=== PATIENT | male | born 1995 | race Hispanic/Latino ===

== ENCOUNTER 2021-11-14 10:04 | Emergency (ER) | payer SELFPAY ==
[2021-11-14] MEDS ORDERED: LIDOCAINE 1% W/EPI 1:100,000 MDV 20 ML VIAL ONE (10:35)
[2021-11-14] MEDS ORDERED: TETANUS & DIPHTHERIA TOX,ADULT 0.5 ML VIAL ONE (10:43)
--- NOTE | 2021-11-14 11:12 | RAD REPORT ---
EXAM DESCRIPTION: RAD - Knee Right 3 View - 11/14/2021 11:01 am CLINICAL HISTORY: Right knee pain status post injury FINDINGS: No fracture or dislocation is seen. Anterior soft tissue laceration.
--- NOTE | 2021-11-14 11:49 | EDPHYS ---
Physician Documentation [facility] Name: Homer He Age: 26 yrs Sex: Male : 1995 Arrival Date: 11/14/2021 Time: 10:07 Bed 11 Private MD: ED Physician Quang Redd HPI: 11/14 11:42 This 26 yrs old Male presents to ER via Ambulatory with complaints of Knee jj Injury. 11:42 The patient presents with an injury, a laceration, 5 cm(s). The complaints affect the jj right knee. Context: The problem was sustained at home. Onset: The symptoms/episode began/occurred just prior to arrival. Modifying factors: The symptoms are alleviated by nothing. the symptoms are aggravated by movement, bending knee. Associated signs and symptoms: The patient has no apparent associated signs or symptoms. Treatment prior to arrival includes: no previous treatment. Severity of symptoms: At their worst the symptoms were mild, in the emergency department the symptoms are unchanged. The patient has not experienced similar symptoms in the past. Historical: - Allergies: 10:14 No Known Allergies; ll1 - PMHx: 10:14 None; ll1 - PSHx: 10:14 None; ll1 - Immunization history:: Client reports having NOT received the Covid vaccine. Last tetanus immunization: unknown. - Social history:: Smoking status: Patient denies any tobacco usage or history of. - Family history:: not pertinent. ROS: 11:42 Constitutional: Negative for fever, chills, and weight loss, Eyes: Negative for injury, jj pain, redness, and discharge, ENT: Negative for injury, pain, and discharge, Neck: Negative for injury, pain, and swelling, Cardiovascular: Negative for chest pain, palpitations, and edema, Respiratory: Negative for shortness of breath, cough, wheezing, and pleuritic chest pain, Abdomen/GI: Negative for abdominal pain, nausea, vomiting, diarrhea, and constipation, Back: Negative for injury and pain, : Negative for injury, bleeding, discharge, and swelling, Skin: Negative for injury, rash, and discoloration, Neuro: Negative for headache, weakness, numbness, tingling, and seizure, Psych: Negative for depression, anxiety, suicide ideation, homicidal ideation, and hallucinations, Allergy/Immunology: Negative for hives, rash, and allergies, Endocrine: Negative for neck swelling, polydipsia, polyuria, polyphagia, and marked weight changes, Hematologic/Lymphatic: Negative for swollen nodes, abnormal bleeding, and unusual bruising. 11:42 MS/extremity: Positive for laceration, pain, of the right knee. Exam: 11:42 Constitutional: This is a well developed, well nourished patient who is awake, alert, jj and in no acute distress. Head/Face: Normocephalic, atraumatic. Eyes: Pupils equal round and reactive to light, extra-ocular motions intact. Lids and lashes normal. Conjunctiva and sclera are non-icteric and not injected. Cornea within normal limits. Periorbital areas with no swelling, redness, or edema. ENT: Nares patent. No nasal discharge, no septal abnormalities noted. Tympanic membranes are normal and external auditory canals are clear. Oropharynx with no redness, swelling, or masses, exudates, or evidence of obstruction, uvula midline. Mucous membranes moist. Neck: Trachea midline, no thyromegaly or masses palpated, and no cervical lymphadenopathy. Supple, full range of motion without nuchal rigidity, or vertebral point tenderness. No Meningismus. Chest/axilla: Normal chest wall appearance and motion. Nontender with no deformity. No lesions are appreciated. Cardiovascular: Regular rate and rhythm with a normal S1 and S2. No gallops, murmurs, or rubs. Normal PMI, no JVD. No pulse deficits. Respiratory: Lungs have equal breath sounds bilaterally, clear to auscultation and percussion. No rales, rhonchi or wheezes noted. No increased work of breathing, no retractions or nasal flaring. Abdomen/GI: Soft, non-tender, with normal bowel sounds. No distension or tympany. No guarding or rebound. No evidence of tenderness throughout. Back: No spinal tenderness. No costovertebral tenderness. Full range of motion. Male : Normal genitalia with no discharge or lesions. Skin: Warm, dry with normal turgor. Normal color with no rashes, no lesions, and no evidence of cellulitis. Neuro: Awake and alert, GCS 15, oriented to person, place, time, and situation. Cranial nerves II-XII grossly intact. Motor strength 5/5 in all extremities. Sensory grossly intact. Cerebellar exam normal. Normal gait. Psych: Awake, alert, with orientation to person, place and time. Behavior, mood, and affect are within normal limits. 11:42 Musculoskeletal/extremity: ROM: intact in all extremities, full active range of motion, full passive range of motion, Circulation is intact in all extremities. Sensation intact. Compartment Syndrome exam of affected extremity: is normal. no numbness, no tingling, no sensation deficit, no palor, no weak pulses, DVT Exam: No signs of deep vein thrombosis. no swelling, negative Homans' sign noted on exam, no appreciated bluish discoloration, no erythema, no increased warmth, pain, tenderness. Vital Signs: 10:13 BP 132 / 73; Pulse 86; Resp 16; Temp 99.0; Pulse Ox 97% ; Weight 81.65 kg; Height 5 ft. ll1 10 in. (177.80 cm); Pain 7/10; 10:30 BP 122 / 75; Pulse 74; Resp 12 S; Pulse Ox 95% on R/A; Pain 6/10; jg9 11:35 BP 124 / 82; Pulse 67; Resp 13 S; Pulse Ox 97% on R/A; Pain 0/10; jg9 10:13 Body Mass Index 25.83 (81.65 kg, 177.80 cm) ll1 Laceration: 11:42 Wound Repair of 5cm ( 2.0in ) subcutaneous laceration to right knee. Linear shaped.. jj Distal neuro/vascular/tendon intact. Anesthesia: Local anesthetic administered with 8 mls of 1% lidocaine w/ Epi. Wound prep: Moderate cleansing with betadine. Skin closed with 6 5-0 Prolene using interrupted sutures and sterile technique. Dressed with Neosporin. Patient tolerated well. MDM: 10:09 Patient medically screened. jj 11:42 Differential diagnosis: contusion, abrasion. Data reviewed: vital signs, nurses notes, [facility] radiologic studies, plain films. Data interpreted: cigar packer: rate is 67 beats/min, rhythm is regular, Pulse oximetry: on room air is 97 %. Test interpretation: by ED physician or midlevel provider: plain radiologic studies. Counseling: I had a detailed discussion with the patient and/or guardian regarding: the historical points, exam findings, and any diagnostic results supporting the discharge/admit diagnosis, lab results, radiology results, the need for outpatient follow up, for definitive care, a family practitioner. 11/14 10:27 Order name: Knee Right 3 View XRAY ll1 11/14 10:32 Order name: Wound Care; Complete Time: 11:33 [facility] 11/14 10:32 Order name: Sutures, Prolene; Complete Time: 10:40 [facility] 11/14 11:41 Order name: Wound dressing; Complete Time: 11:42 jj Administered Medications: 10:39 Drug: Tetanus-Diphtheria Toxoid Adult 0.5 ml {Sports Therapist: [employer]. Exp: jg9 08/22/2023. Lot #: [id number]. } Route: IM; Site: right deltoid; 10:47 Follow up: Response: No adverse reaction jg9 11:24 Drug: Lidocaine-Epinephrine -1%: (1:100,000) 20 ml {Note: r knee laceration.} Volume: jg9 20 ml; Route: Infiltration; 11:33 Follow up: Response: No adverse reaction; Pain is decreased j9 11:42 Drug: Neosporin (fryrhqjz-ijikwcxaxx-nujhfbrvs) Ointment 1 application {Note: right jg9 knee.} Route: Topical; Site: wound; 11:44 Follow up: Response: No adverse reaction jg9 Disposition Summary: 11/14/21 11:48 Discharge Ordered Location: Home jj Problem: new jj Symptoms: have improved jj Condition: Stable jj Diagnosis - Laceration without foreign body, right lower leg - knee jj Followup: jj - With: Private Physician - When: 7 - 10 days - Reason: Recheck today's complaints, Continuance of care, Re-evaluation by your physician Discharge Instructions: - Discharge Summary Sheet jj - Laceration Care, Adult jj - Laceration Care, Adult, [id number] jj Forms: - Medication Reconciliation Form jj - Thank You Letter jj - Antibiotic Education jj - Prescription Opioid Use jj Prescriptions: - Cephalexin 500 mg Oral Capsule - take 1 capsule by ORAL route every 8 hours for 7 days; 21 capsule; Refills: 0, jj Product Selection Permitted - Ibuprofen 600 mg Oral Tablet - take 1 tablet by ORAL route every 6 hours As needed take with food; 30 tablet; jj Refills: 0, Product Selection Permitted Signatures: Dispatcher [employer] Quang Fermin MD MD cha Lewis, Lynsay, RN RN ll1 Mandie Elam RN RN jg9
--- NOTE | 2021-11-14 11:49 | ER ---
Nurse's Notes 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 Bleeding ll1 controlled. Coronavirus screen: Vaccine status: Patient reports being unvaccinated. Client denies travel out of the [place] in the last 14 days. At this time, the client does not indicate any symptoms associated with coronavirus-19. Ebola Screen: Patient denies travel to an Ebola-affected area in the 21 days before illness onset. Initial Sepsis Screen: Does the patient meet any 2 criteria? No. Patient's initial sepsis screen is negative. Does the patient have a suspected source of infection? Yes: Skin breakdown/wound. Risk Assessment: Do you want to hurt yourself or someone else? Patient reports no desire to harm self or others. Onset of symptoms was November 14, 2021. 10:13 Method Of Arrival: Ambulatory ll1 10:13 Acuity: FOX 4 ll1 Triage Assessment: 10:14 General: Appears in no apparent distress. Behavior is calm, cooperative, appropriate ll1 for age. Pain: Complains of pain in R knee. Derm: Reports laceration R knee. Musculoskeletal: Circulation, motion, and sensation intact. Capillary refill < 3 seconds. Injury Description: Laceration. Historical: - Allergies: 10:14 No Known Allergies; ll1 - PMHx: 10:14 None; ll1 - PSHx: 10:14 None; ll1 - Immunization history:: Client reports having NOT received the Covid vaccine. Last tetanus immunization: unknown. - Social history:: Smoking status: Patient denies any tobacco usage or history of. - Family history:: not pertinent. Screenin:18 Abuse screen: Denies threats or abuse. Denies injuries from another. Nutritional jg9 screening: No deficits noted. Tuberculosis screening: No symptoms or risk factors identified. Fall Risk None identified. Assessment: 10:13 Reassessment: No changes from previously documented assessment. Patient and/or family jg9 updated on plan of care and expected duration. Pain level reassessed. Patient is alert, oriented x 3, equal unlabored respirations, skin warm/dry/pink. Pain: Complains of pain in right leg Pain currently is 6 out of 10 on a pain scale. Musculoskeletal: laceration to left right knee. Injury Description: Laceration sustained to right leg-knee is clean, 0.5 to 2.5 cm long, was sustained a small amount of bleeding noted at this time. 11:25 Reassessment: Patient and/or family updated on plan of care and expected duration. Pain jg9 level reassessed. Patient is alert, oriented x 3, equal unlabored respirations, skin warm/dry/pink. ED physician at bedside suturing laceration to right knee. Vital Signs: 10:13 BP 132 / 73; Pulse 86; Resp 16; Temp 99.0; Pulse Ox 97% ; Weight 81.65 kg; Height 5 ft. ll1 10 in. (177.80 cm); Pain 7/10; 10:30 BP 122 / 75; Pulse 74; Resp 12 S; Pulse Ox 95% on R/A; Pain 6/10; jg9 11:35 BP 124 / 82; Pulse 67; Resp 13 S; Pulse Ox 97% on R/A; Pain 0/10; jg9 10:13 Body Mass Index 25.83 (81.65 kg, 177.80 cm) ll1 ED Course: 10:07 Patient arrived in ED. rg4 10:09 Quang Redd MD is Attending Physician. [facility] 10:13 Mandie Elam, EMILIE is Primary Nurse. jg9 10:13 Arm band placed on Patient placed in an exam room, on a stretcher. ll1 10:14 Triage completed. ll1 10:19 Patient has correct armband on for positive identification. Bed in low position. Call jg9 light in reach. Side rails up X 1. 10:19 Wound care: to laceration located on right leg-knee was cleaned with soap and water, jg9 Patient tolerated well. 11:03 Knee Right 3 View XRAY In Process Unspecified. EDMS 11:25 ED physician to see patient. jg9 11:27 Assist provider with laceration repair on right leg-r knee that was between 2.6 to 7.5 jg9 cm using sutures. Set up tray. Performed by Quang Redd MD Dressed with 4X4s, Lily, Patient tolerated well. Administered Medications: 10:39 Drug: Tetanus-Diphtheria Toxoid Adult 0.5 ml {Clinical Data Analyst: [employer]. Exp: jg9 08/22/2023. Lot #: [id number]. } Route: IM; Site: right deltoid; 10:47 Follow up: Response: No adverse reaction jg9 11:24 Drug: Lidocaine-Epinephrine -1%: (1:100,000) 20 ml {Note: r knee laceration.} Volume: jg9 20 ml; Route: Infiltration; 11:33 Follow up: Response: No adverse reaction; Pain is decreased jg9 11:42 Drug: Neosporin (ttkyxvbh-vuhbwlveht-rkhgsttck) Ointment 1 application {Note: right jg9 knee.} Route: Topical; Site: wound; 11:44 Follow up: Response: No adverse reaction jg9 Medication: 10:18 VIS not applicable for this client. jg9 Outcome: 11:48 Discharge ordered by MD. gardner 11:52 Patient left the ED. jg9 Signatures: Dispatcher [employer] EDCA Quang Redd MD MD cha Garcia, Rubi rg4 Jayy Marie RN RN ll1 Mandie Elam RN RN jg9
[2021-11-14] MEDS ORDERED: NEOMYCIN/BAC/POLY OPTH 3.5GM ONE (11:50)
[2021-11-14 12:00] VITALS: TEMP 99
[2021-11-14 12:04] VITALS: BP 124/82; O2SAT 97
== END 2021-11-14 11:52 | disposition home or self-care (01) ==
LOC: ER 10:04
PROC: 0JQN0ZZ Repair Right Lower Leg Subcutaneous Tissue and Fascia, Open Approach (ICD-10-PCS; principal; 2021-11-14)
DX: S81.011A Laceration without foreign body, right knee, initial encounter (principal); Z23 Encounter for immunization
CPT/HCPCS: 90471; 90714; 99284

== ENCOUNTER 2024-03-24 14:46 | Emergency (ER) | payer SELFPAY ==
[2024-03-24] MEDS ORDERED: LIDOCAINE 1% MPF 5 ML VIAL ONE (16:13)
--- NOTE | 2024-03-24 16:29 | EDPHYS ---
Physician Documentation [facility] Name: Homer Mcgrath Age: 28 yrs Sex: Male : 1995 Arrival Date: 03/24/2024 Time: 14:46 Bed 8 Private MD: ED Physician Ceasar Mosquera HPI: 03/24 17:02 This 28 yrs old Male presents to ER via Ambulatory with complaints of kb Laceration To Leg. 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 Denies any other injuries. . Historical: - Allergies: 14:52 No Known Allergies; aa5 - PMHx: 14:52 None; aa5 - Immunization history:: Last tetanus immunization: < 5 years ago. - Infectious Disease History:: Denies. - Social history:: Smoking status: Patient denies any tobacco usage or history of. ROS: 17:00 Constitutional: As per HPI kb Exam: 17:00 Constitutional: This is a well developed, well nourished patient who is awake, alert, kb and in no acute distress. Head/Face: Normocephalic, atraumatic. ENT: Moist Mucous membranes Cardiovascular: Regular rate Respiratory: Respirations even and unlabored. No increased work of breathing. Talking in full sentences Abdomen/GI: Soft, non-tender. No distention MS/ Extremity: Pulses equal, no cyanosis. Neurovascular intact. Full, normal range of motion. Neuro: Awake and alert, GCS 15, oriented to person, place, time, and situation. Moves all extremities. Normal gait. 17:00 Skin: injury, abrasion(s), small abrasion noted, of the left peoples, laceration(s), the wound is approximately 3 cm(s), of the lateral aspect of left calf, that can be described as contaminated, no foreign body, linear, without bleeding, Vital Signs: 14:52 BP 141 / 95; Pulse 96; Resp 18 S; Temp 98.2(TE); Pulse Ox 98% on R/A; Weight 86.18 kg aa5 (R); Height 6 ft. 0 in. (R); 16:38 BP 134 / 76; Pulse 88; Resp 16; Pulse Ox 100% on R/A; mb9 14:52 Body Mass Index 25.77 (86.18 kg, 182.88 cm) aa5 Laceration: 17:01 Wound Repair of 3cm ( 1.2in ) subcutaneous laceration to lateral aspect of left calf. kb Linear shaped.. Distal neuro/vascular/tendon intact. Anesthesia: Local anesthetic administered with 3 mls of 1% lidocaine. Wound prep: Extensive cleansing with hibiclenz by nurse, Wound irrigation with saline by me. Skin closed with 3 4-0 Prolene using simple sutures and sterile technique. Patient tolerated well. MDM: 14:51 Patient medically screened. kb 17:02 Differential diagnosis: superficial laceration, tendon injury, vascular injury. Data kb reviewed: vital signs, nurses notes. Test considered but Not performed: X-ray: xray considered but laceration is superficial. Counseling: I had a detailed discussion with the patient and/or guardian regarding the historical points, exam findings, and any diagnostic results supporting the discharge/admit diagnosis, the need for outpatient follow up, a family practitioner, to return to the emergency department if symptoms worsen or persist or if there are any questions or concerns that arise at home. 03/24 14:55 Order name: Wound Care: please clean wound; Complete Time: 15:00 kb 03/24 16:01 Order name: Dressing - Wound; Complete Time: 16:19 kb 03/24 16:01 Order name: Gloves, Sterile; Complete Time: 16:19 kb 03/24 16:01 Order name: Prolene, Sutures; Complete Time: 16:19 kb 03/24 16:01 Order name: Setup Suture Tray; Complete Time: 16:19 kb Administered Medications: 16:19 Drug: Lidocaine Infiltration (1 %) 1 vials 5 ml Infiltration once; to bedside Volume: 5 mb9 ml; Route: Infiltration; Disposition Summary: 03/24/24 16:28 Discharge Ordered Notes: Location: Home kb Condition: Stable kb Diagnosis - Laceration without foreign body of lower leg kb Followup: kb - With: Emergency Department - When: As needed - Reason: Worsening of condition Followup: kb - With: Private Physician - When: 2 - 3 days - Reason: Recheck today's complaints, Continuance of care, Re-evaluation by your physician Discharge Instructions: - Discharge Summary Sheet kb - Laceration Care, Adult, [id number] kb Forms: - Medication Reconciliation Form kb - Antibiotic Education kb - Prescription Opioid Use kb - Patient Portal Instructions kb - Leadership Thank You Letter kb Prescriptions: - Doxycycline Hyclate 100 mg Oral Tablet - take 1 tablet ORAL route every 12 hours; 20 tablet; Refills: 0, Product kb Selection Permitted Addendum: 03/26/2024 09:21 I was immediately available for consultation during this patient's visit. I did not e c2 personally see the patient or discuss the patient with the CHELI. . Signatures: Nickie Stroud, SETH-C SETH-Niki Chambers, RN RN aa5 Brandy Montiel RN RN mb9 Ceasar Mosquera MD MD ec2 Corrections: (The following items were deleted from the chart) 03/24 14:52 14:52 Immunization history: Last tetanus immunization: unknown, aa5 aa5
--- NOTE | 2024-03-24 16:29 | ER ---
Nurse's Notes [facility] Name: Homer Mcgrath Age: 28 yrs Sex: Male : 1995 Arrival Date: 03/24/2024 Time: 14:46 Bed 8 Private MD: Diagnosis: Laceration without foreign body of lower leg Presentation: 03/24 14:52 Chief complaint: Patient states: "I was trying to catch a fish and I fell on an oyster aa5 bed". Laceration noted to left lower leg. Coronavirus screen: At this time, the client does not indicate any symptoms associated with coronavirus-19. Ebola Screen: Patient denies travel to an Ebola-affected area in the 21 days before illness onset. Complicating Factors: There are no complicating factors for this patient. Initial Sepsis Screen: Does the patient meet any 2 criteria? No. Patient's initial sepsis screen is negative. Does the patient have a suspected source of infection? No. Patient's initial sepsis screen is negative. Risk Assessment: Do you want to hurt yourself or someone else? Patient reports no desire to harm self or others. Onset of symptoms was March 24, 2024. 14:52 Method Of Arrival: Ambulatory aa5 14:52 Acuity: FOX 4 aa5 Historical: - Allergies: 14:52 No Known Allergies; aa5 - PMHx: 14:52 None; aa5 - Immunization history:: Last tetanus immunization: < 5 years ago. - Infectious Disease History:: Denies. - Social history:: Smoking status: Patient denies any tobacco usage or history of. Screenin:[facility] ED Fall Risk Assessment (Adult) History of falling in the last 3 months, ll1 including since admission No falls in past 3 months (0 pts) Confusion or Disorientation No (0 pts) Intoxicated or Sedated No (0 pts) Impaired Gait No (0 pts) Mobility Assist Device Used No (0 pt) Altered Elimination No (0 pt) Score/Fall Risk Level 0 - 2 = Low Risk Maintained a safe environment, Hourly rounding (assess needs \\T\\ fall precautionary measures) done. Abuse screen: Denies threats or abuse. Nutritional screening: No deficits noted. Tuberculosis screening: No symptoms or risk factors identified. Assessment: 15:05 General: Appears uncomfortable, Behavior is calm, cooperative, appropriate for age. ll1 Pain: Complains of pain in left leg Quality of pain is described as aching. 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 Bleeding controlled at this time. Musculoskeletal: Circulation, motion, and sensation intact. Capillary refill < 3 seconds, in left toes. 15:06 Injury Description: Laceration is contaminated, 0.5 to 2.5 cm long, not bleeding. ll1 Vital Signs: 14:52 BP 141 / 95; Pulse 96; Resp 18 S; Temp 98.2(TE); Pulse Ox 98% on R/A; Weight 86.18 kg aa5 (R); Height 6 ft. 0 in. (R); 16:38 BP 134 / 76; Pulse 88; Resp 16; Pulse Ox 100% on R/A; mb9 14:52 Body Mass Index 25.77 (86.18 kg, 182.88 cm) aa5 ED Course: 14:49 Patient arrived in ED. mg5 14:51 Nickie Stroud FNP-C is PSYCHIATRICP. kb 14:51 Ceasar Mosquera MD is Attending Physician. kb 14:52 Arm band placed on. aa5 14:53 Triage completed. aa5 15:06 Patient has correct armband on for positive identification. Bed in low position. ll1 Cardiac monitoring not applicable on this patient. 15:07 Wound care: to laceration located on left leg was cleaned with Hibiclens, Patient ll1 tolerated well. 16:10 Brandy Montiel, EMILIE is Primary Nurse. mb9 16:18 Patient did not have IV access during this emergency room visit. mb9 16:19 Provided Education on: press call light if needing anything. mb9 16:19 Assist provider with laceration repair on left leg that was between 2.6 to 7.5 cm using mb9 sutures. Set up tray. Performed by Nickie HA Dressed with 4X4s, Kerlix, Xeroform, Patient tolerated well. Administered Medications: 16:19 Drug: Lidocaine Infiltration (1 %) 1 vials 5 ml Infiltration once; to bedside Volume: 5 mb9 ml; Route: Infiltration; Medication: 16:19 VIS not applicable for this client. mb9 Outcome: 16:28 Discharge ordered by . kb 16:38 Discharged to home ambulatory, mb9 16:38 Condition: stable 16:38 Discharge instructions given to patient, Instructed on discharge instructions, follow up and referral plans. Demonstrated understanding of instructions, follow-up care, medications, Prescriptions given X 1, 16:39 Patient left the ED. mb9 Signatures: Nickie Stroud, INTAKE WORKER-C INTAKE WORKER-Niki Chambers RN RN aa5 Jayy Marie RN RN llBrandy Rosario RN RN mb9 Dilcia Raya mg5 Corrections: (The following items were deleted from the chart) 14:52 14:52 Immunization history: Last tetanus immunization: unknown, aa5 aa5
[2024-03-24 19:46] VITALS: TEMP 98.2
[2024-03-24 19:48] VITALS: BP 134/76; O2SAT 100
== END 2024-03-24 16:39 | disposition home or self-care (01) ==
LOC: ER 14:46
DX: S81.812A Laceration without foreign body, left lower leg, initial encounter (principal)
CPT/HCPCS: J2001